=== PATIENT | male | born 1980 | race Hispanic/Latino ===

== ENCOUNTER 2021-04-29 05:22 | Inpatient (IN) | payer SELFPAY ==
--- NOTE | ~2021-04-29 | CT_ITS ---
EXAMINATION: CT abdomen pelvis w con DATE: 04/29/2021 06:57 INDICATION: Left gluteal abscess TECHNIQUE: Computed tomography (CT) of the abdomen and pelvis was performed with 100 mL Omnipaque-350 intravenous contrast. Automated exposure control and iterative reconstruction technique were employe d. The dose-length product was 660.64 mGy-cm. COMPARISON: None FINDINGS: Lung bases are clear. Heart size is normal. No pericardial or pleural effusion. Small sliding-type hi atal hernia. Focal hepatic steatosis at the ligamentum teres. Gallbladder, spleen, pancreas, bilatera l adrenal glands and kidneys are normal. Bowels including the appendix are normal. Bladder is normal. Small fat-containing left inguinal hernia. No free intraperitoneal gas or fluid. No pathologically e nlarged abdominal or pelvic lymphadenopathy. Prominent focal stranding in the subcutaneous fat at the inferomedial aspect of the left buttock consistent with cellulitis without discrete abscess. Mild emeterio mbar dextroscoliosis. IMPRESSION: 1. Prominent focal cellulitis without abscess at the inferomedial aspect of the left buttock. 2. Small sliding-type hiatal hernia. 3. Small fat-containing left inguinal hernia. Reviewed, dictated and finalized at location A.
[2021-04-29 05:28] VITALS: BP 141/93; PULSE 90; RESP 16; TEMP 36.4
--- NOTE | 2021-04-29 06:26 | ED.GENADULT ---
HPI - General Adult General Chief complaint: Skin/Abscess/Foreign Body Stated complaint: boil Time Seen by Provider: 04/29/21 06:09 History of Present Illness HPI narrative: Patient 40-year-old gentleman who presents the emergency department with chief complaint of left gluteal abscess. The patient states that the last several days he had redness and swelling in his left gluteal area. Patient states pain is worse with movement improved with rest. Patient states the area is swollen reports he attempted to pop the area but had no eye drainage. The patient denies fever denies chills patient reports a no prior history of significant abscesses before in the past. Related Data Allergies Allergy/AdvReac Type Severity Reaction Status Date / Time No Known Drug Allergies Allergy Unknown Verified 04/29/21 07:17 Review of Systems Review of Systems: Narrative: A 10 system review of systems was completed on the patient and is negative except for what is stated in the HPI. Nursing and ancillary documentation was reviewed. Exam Narrative: Exam Narrative: GENERAL: Well-appearing, well-nourished, and in no acute distress. HEAD: Normocephalic, atraumatic. EYES: PERRLA and EOMI. ENT: Nares clear, no rhinorrhea or epistaxis. Mucous membranes moist. NECK: Supple. CHEST: Clear to auscultation. No respiratory distress. HEART: Regular rate and rhythm. No murmur heard. Normal peripheral pulses. ABDOMEN: Soft, nontender, nondistended, normal active bowel sounds. EXTREMITIES: Normal range of motion. No edema. SKIN: Warm, dry, no rash. There is redness and swelling in the left gluteal region. Area is extremely firm and tender to touch NEURO: No focal deficits. Alert and oriented x3. PSYCH: Normal mood and affect. Course Course Emergency Course: CT scan showed no evidence of abscess only induration consistent with cellulitis Vital Signs Vital signs: Vital Signs Temperature 36.4 C 04/29/21 05:28 Pulse Rate 90 04/29/21 05:28 Respiratory Rate 16 04/29/21 05:28 Blood Pressure 141/93 H 04/29/21 05:28 Temperature 36.4 C 04/29/21 05:28 Pulse Rate 90 04/29/21 05:28 Respiratory Rate 16 04/29/21 05:28 Blood Pressure 141/93 H 04/29/21 05:28 Medical Decision Making Vital Signs Vital Signs: Vital Signs Temperature 36.4 C 04/29/21 05:28 Pulse Rate 90 04/29/21 05:28 Respiratory Rate 16 04/29/21 05:28 Blood Pressure 141/93 H 04/29/21 05:28 Temperature 36.4 C 04/29/21 05:28 Pulse Rate 90 04/29/21 05:28 Respiratory Rate 16 04/29/21 05:28 Blood Pressure 141/93 H 04/29/21 05:28 Lab Data Result diagrams: 04/29/21 06:24 04/29/21 06:24 Labs: Lab Results 04/29/21 04/29/21 04/29/21 Range/Units 06:24 06:24 06:24 WBC 13.3 H (4.5-10.0) K/mm3 RBC 4.78 (4.6-6.20) M/mm3 Hgb 13.3 L (14.0-18.0) g/dL Hct 40.8 L (42.0-52.0) % MCV 85.4 (80-100) fl MCH 27.8 (26-34) pg MCHC 32.6 (32-36) g/dl RDW 14.4 (11.5-14.5) % Plt Count 282 (150-375) k/mm3 MPV 10.8 H (7.4-10.4) fl Immature Gran % (Auto) 0.4 (0-0.5) % Neut % (Auto) 65.7 (45.5-73.1) % Lymph % (Auto) 19.3 (18.3-44.2) % [place] % (Auto) 11.5 H (2.6-8.5) % Eos % (Auto) 2.8 (0-4.4) % Baso % (Auto) 0.3 (0.2-1.2) % Lymph # (Auto) 2.56 (0.9-3.2) K/mm3 [place] # (Auto) 1.5 H (0.1-0.6) K/mm3 Eos # (Auto) 0.4 H (0-0.3) K/mm3 Baso # (Auto) 0.0 (0.0-0.1) K/mm3 Abs Immat Gran (auto) 0.05 H (0.00-0.031) K/mm3 Absolute Neuts (auto) 8.7 H (1.3-6.7) K/mm3 Absolute Nucleated RBC 0.0 (0.0-0.012) K/mm3 Nucleated RBC % 0.0 (0.0-0.2) % Sodium 140 (137-145) mmol/L Potassium 4.0 (3.4-5.0) mmol/L Chloride 103 (98-107) mmol/L Carbon Dioxide 28 (22-30) mmol/L Anion Gap 9 (8-16) mmol/L BUN 13 (9-20) mg/dL Creatinine 0.80 (0.7-1.3) mg/dL Estim Creat Clear Calc 96 ml/min Estimated GFR >
[2021-04-29 06:33] LABS: Basophils Percent Auto 0.3 % (0.2-1.2); Eosinophils Absolute Auto 0.4 K/mm3 (0-0.3); Eosinophils Percent Auto 2.8 % (0-4.4); Hematocrit 40.8 % (42.0-52.0); Hemoglobin 13.3 g/dL (14.0-18.0); Immature Granulocyte Absolute 0.05 K/mm3 (0.00-0.031); Immature Granulocyte Percent A 0.4 % (0-0.5); Lymphocytes Absolute Auto 2.56 K/mm3 (0.9-3.2); Lymphocytes Percent Auto 19.3 % (18.3-44.2); Mean Corpuscular HGB Conc 32.6 g/dl (32-36); Mean Corpuscular Hemoglobin 27.8 pg (26-34); Mean Corpuscular Volume 85.4 fl (80-100); Mean Platelet Volume 10.8 fl (7.4-10.4); Monocytes Absolute Auto 1.5 K/mm3 (0.1-0.6); Monocytes Percent Auto 11.5 % (2.6-8.5); Neutrophils Absolute Auto 8.7 K/mm3 (1.3-6.7); Neutrophils Percent Auto 65.7 % (45.5-73.1); Platelet Count Result 282 k/mm3 (150-375); Red Blood Count 4.78 M/mm3 (4.6-6.20); Red Cell Distribution Width 14.4 % (11.5-14.5); White Blood Count 13.3 K/mm3 (4.5-10.0)
[2021-04-29 06:42] LABS: Alanine Aminotransferase 81 U/L (4-50); Albumin Level 4.2 g/dL (3.5-5.1); Alkaline Phosphatase 174 U/L (38-126); Anion Gap 9 mmol/L (8-16); Aspartate Amino Transferase 70 U/L (17-59); Bilirubin,Total 0.7 mg/dL (0.2-1.3); Blood Urea Nitrogen 13 mg/dL (9-20); Calcium 9.2 mg/dL (8.4-10.2); Carbon Dioxide 28 mmol/L (22-30); Chloride 103 mmol/L (98-107); Estimated CRCL calculation 96 ml/min; Estimated Glomerular Filt Rate > 60; Glucose 105 mg/dL (75-110); Lactic Acid Reflex 0.6 mmol/L (0.7-2.1); Sodium 140 mmol/L (137-145)
[2021-04-29] MEDS: SODIUM CHLORIDE 0.9% IV 1,000 ML 999 ML IV CONT (07:18)
[2021-04-29] MEDS: ONDANSETRON INJ 4 MG/2 ML VIAL IV PUSH (07:18)
[2021-04-29] MEDS: HYDROmorphone HCL INJ (*CRX) 1 MG/ML SYR IV PUSH (07:19)
[2021-04-29] MEDS: CLINDAMYCIN 600 MG/D5W 50 ML 600 MG/50 ML PIGGYBACK 100 MG IVPB ×3 (07:19→20:45)
--- NOTE | 2021-04-29 08:43 | ADMGEN ---
This patient, Bill Olguin, was admitted to 2 Medical Room 250-01. Patient/family oriented to hospital policies and general routines including ID bracelet, bed and alarms, visiting hours, pain management, procedures, bathroom and other care routines, personal items, smoking policy, room service/diet, and visiting hours. Information on how to activate the Rapid Response Team has been discussed. Patient/Family are encouraged to report perceived risks to care and to ask questions if they do not understand what they are told or what they should do.
[2021-04-29] MEDS: ACETAMINOPHEN 325 MG TABLET 650 MG PO ×2 (09:12→14:23)
--- NOTE | 2021-04-29 13:50 | PM.IMHP ---
H&P: HPI History of Present Illness Date/Time: 04/29/21 13:50 PATIENT IS ADMITTED UNDER OBSERVATION STATUS Chief Complaint: left buttock boil Narrative: 40yo healthy male presents to the ED with complaints of left buttock pain, induration and redness. Patient noted a pimple on his left buttock about 2 weeks ago. He denies that he manipulated the area. He cleaned the area with soap and water. On April 25 patient played soccer. He denies any pain at that time. The following day however he noted increasing pain to the left buttock. The area was hard and indurated. He did try to pop it while in the shower. He continued to use soap and water to the area. He did not use any creams or oral medications. He has not been on antibiotics. He did not contact his doctor. Patient actually does not have a primary care doctor. He denies any fever, chills, nausea, vomiting, abdominal pain, urinary symptoms, chest pain. No history of other skin lesions in the past. No other areas of the skin that are affected at this time. Because of the worsening pain, patient presented to the ED for evaluation. In the ED, patient was hemodynamically stable. He had a CT of the abdomen and pelvis showed prominent focal stranding in the subcutaneous fat at the inferior medial aspect of the left buttock consistent with cellulitis. No discrete abscess noted. Blood cultures [place] [id number]. He was treated clindamycin admitted for further care. Review of Systems Review of Systems: All systems reviewed & are unremarkable except as noted in HPI and below PMFSH Past Medical History Medical History Alcohol abuse Seasonal allergies Tobacco abuse Surgical History Surgical History No pertinent past surgical history Family History Family History Father Diabetes mellitus Mother Heart disease Social History Social History Social History: Patient lives at home with his girlfriend and brother. He has 4 children that live elsewhere. He smoked a pack a week for about 10 years but now only smokes when he drinks alcohol. He denies drug use. He drinks 12-18 beers 1 to 2 times a week. Full code. He nominates his girlfriend to be his surrogate decision maker. Smoking status: Light tobacco smoker Alcohol intake: current Drinks per week: 12 Substance use: never Substance use type: does not use Gender identity (if verbalized by the patient): Male Spiritual care concerns: No Meds Home Medications and Allergies Home Medications Medication Instructions Recorded Confirmed Type pantoprazole [Protonix] 20 mg PO DAILY PRN 04/29/21 04/29/21 History Allergies Allergy/AdvReac Type Severity Reaction Status Date / Time No Known Drug Allergies Allergy Unknown Verified 04/29/21 07:17 Vital Signs Vital Signs - 24 hr 04/29/21 05:28 Temperature 97.6 F Pulse Rate 90 Respiratory Rate 16 Blood Pressure 141/93 H Exam Narrative: Exam Narrative: AF 97.6 141/93 90 16 Gen - well-nourished, well-developed male in no acute respiratory distress who is nontoxic-appearing lying semi recumbent in bed but who appears uncomfortable HEENT - normocephalic. Atraumatic. Pupils equal round and reactive. Extraocular motions intact. Sclera mildly injected and anicteric. Nares patent. Oropharynx was clear. No oral lesions. Moist mucous membranes. Tongue was midline. Palate robles symmetrically. No facial asymmetry. Poor dentition. Neck - neck was supple. No dominant adenopathy, thyromegaly or masses. 2+ carotid upstrokes Chest - lungs are clear to auscultation bilaterally. No wheezes or crackles. CV - heart was regular rate and rhythm. S1-S2. No murmurs gallops or rubs. Abd - abdomen wa
[2021-04-29 14:00] VITALS: BP 107/71; PULSE 77; RESP 18; TEMP 37.4; O2SAT 98
--- NOTE | 2021-04-29 14:59 | PM.CNGS ---
Assessment and Plan Assessment and plan (1) Left buttock abscess: Code(s): L02.31 - Cutaneous abscess of buttock Status: Acute Assessment and Plan: Left buttock abscess with overlying skin necrosis. This appears to be the cause for his leukocytosis. I have discussed the case and plan with Dr. Ayoub. Will plan to make patient NPO aftermidnight and proceed with incision and drainage of the left buttock abscess. Description of the procedure, risks, benefits, expected outcomes, and expected recovery were discussed with the patient in detail. Patient agrees to proceed. Continue IV antibiotics and analgesics as needed for pain. (2) Alcohol abuse: Code(s): F10.10 - Alcohol abuse, uncomplicated Status: Acute Assessment and Plan: Encouraged cessation. (3) Tobacco abuse: Code(s): Z72.0 - Tobacco use Status: Acute Assessment and Plan: Encouraged cessation. Additional Plan Thank you for allowing us to see the patient in consultation and we will continue to follow along with you. History of Present Illness Consult details Consult date: 04/29/21 Reason for consult: other (Left buttock cellulitis and suspected abscess) Requesting physician: Shahzad Vick MD Narrative: This is a 40-year-old male who presented to the ER with complaints of left buttock pain and swelling. He reports noticing a small bump on his left buttock about 2 weeks ago. This area progressively became more swollen. On Monday, he reports that he noticed the left buttock became firm and tender. He has not used any over the counter medications or creams. He has not seen a medical provider prior to his ER visit. Denies fevers or chills. Denies a history of abscesses in the past. No history of MRSA. Due to the worsening pain, he presented to the ER for further evaluation. He had a CT scan of the abdomen and pelvis in the [facility] ER which showed prominent focal stranding in the subcutaneous fat at the inferior medial aspect of the left buttock consistent with cellulitis. Labs revealed mild leukocytosis with a white blood cell count of 13,300. The patient was admitted to the Hospitalist and started on IV Clindamycin. The patient is now seen on the medical floor. He reports significant left buttock pain. No other complaints at this time. Review of Systems Review of Systems: All systems reviewed & are unremarkable except as noted in HPI and below Constitutional: Constitutional: Reports as per HPI, Denies chills and Denies fever(s) Cardiovascular: Cardiovascular: Reports no additional cardiovascular complaints, Denies chest pain and Denies leg edema Respiratory: Respiratory: Reports no additional respiratory complaints, Denies cough and Denies dyspnea Gastrointestinal: Gastrointestinal: Reports no additional gastrointestinal complaints, Denies abdominal pain, Denies bloating, Denies change in bowel habits, Denies change in stool character, Denies constipation, Denies diarrhea, Denies nausea and Denies vomiting Genitourinary: Genitourinary: Denies dysuria Integumentary/Breasts: Skin/Breast: Reports wounds (left buttock) Neurologic: Reports system reviewed and no additional complaints, except as documented, Reports Normal hearing present, Denies abnormal gait, Denies dizziness, Denies focal weakness, Denies numbness and Denies tingling PMFSH Past Medical History Medical History Seasonal allergies Surgical History Surgical History No pertinent past surgical history Family History Family History Father Diabetes mellitus Mother Heart disease Social History Social History Social History: Patient lives at home with his girlfriend and brother. He has 4 children that live elsewhere. He smoked a pack a week for about
[2021-04-29] MEDS: THIAMINE HCL 100 MG TABLET PO (16:58)
[2021-04-29] MEDS: HYDROcodone/acetaminophen (*CRX) 5-325 MG TABLET 1 TAB PO (20:26)
[2021-04-29 21:08] VITALS: BP 141/69; PULSE 80; RESP 16; TEMP 37.4; O2SAT 99
[2021-04-29 22:44] VITALS: O2SAT 99
[2021-04-30] VITALS (10 sets, daily range): BP systolic 105–128; BP diastolic 67–84; PULSE 74–95; RESP 14–18; TEMP 36.9–38; O2SAT 95–100
[2021-04-30] MEDS: HYDROcodone/acetaminophen (*CRX) 5-325 MG TABLET 1 TAB PO ×4 (02:01→23:06)
[2021-04-30 05:36] LABS: Basophils Percent Auto 0.2 % (0.2-1.2); Eosinophils Absolute Auto 0.4 K/mm3 (0-0.3); Hematocrit 38.1 % (42.0-52.0); Hemoglobin 12.4 g/dL (14.0-18.0); Immature Granulocyte Absolute 0.05 K/mm3 (0.00-0.031); Immature Granulocyte Percent A 0.4 % (0-0.5); Lymphocytes Absolute Auto 2.45 K/mm3 (0.9-3.2); Mean Corpuscular HGB Conc 32.5 g/dl (32-36); Monocytes Absolute Auto 1.3 K/mm3 (0.1-0.6); Monocytes Percent Auto 9.6 % (2.6-8.5); Neutrophils Absolute Auto 9.3 K/mm3 (1.3-6.7); Neutrophils Percent Auto 68.8 % (45.5-73.1); Platelet Count Result 276 k/mm3 (150-375); Red Blood Count 4.59 M/mm3 (4.6-6.20); Red Cell Distribution Width 14.1 % (11.5-14.5); White Blood Count 13.6 K/mm3 (4.5-10.0)
[2021-04-30 05:52] LABS: Anion Gap 7 mmol/L (8-16); Blood Urea Nitrogen 11 mg/dL (9-20); Calcium 9.2 mg/dL (8.4-10.2); Carbon Dioxide 29 mmol/L (22-30); Chloride 101 mmol/L (98-107); Estimated CRCL calculation 86 ml/min; Estimated Glomerular Filt Rate > 60; Glucose 102 mg/dL (75-110); Potassium 4.6 mmol/L (3.4-5.0); Sodium 137 mmol/L (137-145)
[2021-04-30] MEDS: CLINDAMYCIN 600 MG/D5W 50 ML 600 MG/50 ML PIGGYBACK 100 MG IVPB ×3 (06:02→21:47)
[2021-04-30 07:12] LABS: Alanine Aminotransferase 65 U/L (4-50); Albumin Level 3.9 g/dL (3.5-5.1); Alkaline Phosphatase 161 U/L (38-126); Aspartate Amino Transferase 52 U/L (17-59); Bilirubin,Total 0.5 mg/dL (0.2-1.3)
[2021-04-30] MEDS: FOLIC ACID 1 MG TABLET PO (08:19)
--- NOTE | 2021-04-30 08:30 | PM.PNGS ---
Progress Note: A&P Assessment and Plan (1) Left buttock abscess: Code(s): L02.31 - Cutaneous abscess of buttock Status: Acute Assessment and Plan: Will proceed with I&D of left buttock abscess today. Patient NPO for sedation. Continue IV antibiotics. Subjective Subjective Date/Time Seen: 04/30/21 08:30 Interval history: Infection no better today. Still having pain, swelling, redness. Exam Skin: Other: 6cm area of erythema and induration on left buttock Objective Data Vital Signs Vital Signs: Vital Signs - 24 hr 04/29/21 14:00 04/29/21 21:08 04/29/21 22:44 Temperature 37.4 C 37.4 C Pulse Rate 77 80 Respiratory Rate 18 16 Blood Pressure 107/71 141/69 H Pulse Oximetry 98 99 99 04/30/21 05:21 Temperature 36.9 C Pulse Rate 80 Respiratory Rate 16 Blood Pressure 115/70 Pulse Oximetry 96 Intake/Output Intake/Output: Intake & Output 04/27/21 04/28/21 04/29/21 04/30/21 23:59 23:59 23:59 23:59 Intake Total 2029 50 Balance 2030 50 Meds/Results Medications: Active Medications Generic Name Dose Route Start Last Admin Trade Name Freq PRN Reason Stop Dose Admin Acetaminophen 650 mg 04/29/21 07:41 04/29/21 14:23 Acetaminophen 325 Mg Tablet PO 650 mg Q4H PRN Administration Mild Pain (1-3) or Fever Hydrocodone Bitart/Acetaminophen 1 tab 04/29/21 14:16 04/30/21 08:19 Hydrocodone/Acetaminophen (*Crx) 5-325 Mg Tablet PO 1 tab Q4H PRN Administration Moderate Pain (4-6) Chlordiazepoxide HCl 25 mg 04/29/21 14:18 Chlordiazepoxide (*Crx) 25 Mg Capsule PO Q6H PRN Withdrawal Enoxaparin Sodium 40 mg 04/30/21 09:00 Enoxaparin 40 Mg/0.4 Ml Syringe SUB-Q DAILY SAULO Folic Acid 1 mg 04/30/21 09:00 04/30/21 08:19 Folic Acid 1 Mg Tablet PO 1 mg DAILY SAULO Administration Clindamycin Phosphate 600 mg in 50 mls @ 100 mls/hr 04/29/21 14:00 04/30/21 06:32 Clindamycin 600 Mg/D5w 50 Ml IVPB Infused Q8H SAULO Infusion Morphine Sulfate 2 mg 04/29/21 14:16 Morphine Sulfate (*Crx) 2 Mg/Ml Inj IV PUSH Q4H PRN Pain Rated 7-10 Ondansetron HCl 4 mg 04/29/21 07:41 Ondansetron Inj 4 Mg/2 Ml Vial IV PUSH Q4H PRN Nausea Pantoprazole Sodium 20 mg 04/29/21 14:05 Pantoprazole Sod Sesquihydrate 20 Mg Tab PO DAILY PRN Indigestion Thiamine HCl 100 mg 04/29/21 14:20 04/29/21 16:58 Thiamine Hcl 100 Mg Tablet PO 100 mg QAM SAULO Administration Radiology Results: ITS Impressions Abdomen/Pelvis CT 04/29/21 07:07 IMPRESSION: 1. Prominent focal cellulitis without abscess at the inferomedial aspect of the left buttock. 2. Small sliding-type hiatal hernia. 3. Small fat-containing left inguinal hernia. Labs Labs: Laboratory Results - last 24 hr 04/30/21 04/30/21 04/30/21 05:18 05:19 05:19 WBC 13.6 H RBC 4.59 L Hgb 12.4 L Hct 38.1 L MCV 83.0 MCH 27.0 MCHC 32.5 RDW 14.1 Plt Count 276 MPV 10.0 Immature Gran % (Auto) 0.4 Neut % (Auto) 68.8 Lymph % (Auto) 18.0 L [place] % (Auto) 9.6 H Eos % (Auto) 3.0 Baso % (Auto) 0.2 Lymph # (Auto) 2.45 [place] # (Auto) 1.3 H Eos # (Auto) 0.4 H Baso # (Auto) 0.0 Abs Immat Gran (auto) 0.05 H Absolute Neuts (auto) 9.3 H Absolute Nucleated RBC 0.0 Nucleated RBC % 0.0 Sodium 137 Potassium 4.6 Chloride 101 Carbon Dioxide 29 Anion Gap 7 L BUN 11 Creatinine 0.90 Estim Creat Clear Calc 86 Estimated GFR > 60 Glucose 102 Calcium 9.2 Total Bilirubin 0.5 Direct Bilirubin 0.0 AST 52 ALT 65 H Alkaline Phosphatase 161 H Total Protein 8.0 Albumin 3.9
--- NOTE | 2021-04-30 10:04 | PM.IMPN ---
Progress Note: A&P Assessment and Plan (1) Cellulitis: Qualifiers: Site of cellulitis: buttock Qualified Code(s): L03.317 - Cellulitis of buttock Code(s): L03.90 - Cellulitis, unspecified Status: Acute Assessment and Plan: Patient with cellulitis and probably abscess to the left buttock that is extremely indurated with concerns for skin necrosis. This area to be opened and drained today. General surgery consulted and appreciate their input. Continue morphine and Doole for pain control. Will continue Clindamycin for now. Blood culture results pending. Wound culture after I&D. (2) Elevated LFTs: Code(s): R79.89 - Other specified abnormal findings of blood chemistry Status: Acute Assessment and Plan: Mildly elevated LFTs with AST 70 and ALT 81. Probably related to his alcohol use. CT does show focal hepatic steatosis. Repeat levels trending down. He was informed and again encouraged to stop his alcohol use. Will follow for now. (3) Alcohol abuse: Code(s): F10.10 - Alcohol abuse, uncomplicated Status: Acute Assessment and Plan: Patient was educated about the benefits of abstaining from excessive alcohol use. No evidence of alcohol withdrawal. Will continue thiamine and folate. Librium will be available as needed for signs of symptoms withdrawal. (4) Tobacco abuse: Code(s): Z72.0 - Tobacco use Status: Acute Assessment and Plan: Patient was educated about the benefits of smoking cessation. (5) DVT prophylaxis: Code(s): Z29.9 - Encounter for prophylactic measures, unspecified Status: Acute Assessment and Plan: Lovenox Subjective Date/time seen: 04/30/21 10:04 Interval history: 40yo healthy male here for left buttock cellulitis/abscess. Pain better controlled with narcotics. Slept okay. No CP or SOB. No n/v. no diarrhea. No abd pain. Exam Narrative: Exam Narrative: AF 98.4 115/70 80 16 96% ra Gen - NARD Chest - CTA bilaterally, nml R CV -RRR. S1-S2. Abd - Soft. Nontender. Nondistended. Positive bowel sounds. Ext - no pedal edema Psych - normal mood and affect. Skin - warm and dry. Mid left buttock with a firm indurated erythematous tender oval mass with central quarter sized dusky center that is peeling and areas of pustules Objective Data Vital Signs Vital Signs: Vital Signs - 24 hr 04/29/21 14:00 04/29/21 21:08 04/29/21 22:44 Temperature 99.4 F 99.3 F Pulse Rate 77 80 Respiratory Rate 18 16 Blood Pressure 107/71 141/69 H Pulse Oximetry 98 99 99 04/30/21 05:21 Temperature 98.4 F Pulse Rate 80 Respiratory Rate 16 Blood Pressure 115/70 Pulse Oximetry 96 Intake/Output Intake/Output: Intake & Output 04/27/21 04/28/21 04/29/21 04/30/21 23:59 23:59 23:59 23:59 Intake Total 2029 50 Balance 2030 50 Meds/Results Medications: Active Medications Generic Name Dose Route Start Last Admin Trade Name Freq PRN Reason Stop Dose Admin Acetaminophen 650 mg 04/29/21 07:41 04/29/21 14:23 Acetaminophen 325 Mg Tablet PO 650 mg Q4H PRN Administration Mild Pain (1-3) or Fever Hydrocodone Bitart/Acetaminophen 1 tab 04/29/21 14:16 04/30/21 08:19 Hydrocodone/Acetaminophen (*Crx) 5-325 Mg Tablet PO 1 tab Q4H PRN Administration Moderate Pain (4-6) Chlordiazepoxide HCl 25 mg 04/29/21 14:18 Chlordiazepoxide (*Crx) 25 Mg Capsule PO Q6H PRN Withdrawal Enoxaparin Sodium 40 mg 04/30/21 09:00 Enoxaparin 40 Mg/0.4 Ml Syringe SUB-Q DAILY SAULO Folic Acid 1 mg 04/30/21 09:00 04/30/21 08:19 Folic Acid 1 Mg Tablet PO 1 mg DAILY SAULO Administration Clindamycin Phosphate 600 mg in 50 mls @ 100 mls/hr 04/29/21 14:00 04/30/21 06:32 Clindamycin 600 Mg/D5w 50 Ml IVPB Infused Q8H SAULO Infusion Lactated Ringer's 1,000 mls @ 30 mls/hr 04/30/21 10:05 Lr - Lactated Ringers Iv IV CO
[2021-04-30] MEDS: ENOXAPARIN 40 MG/0.4 ML SYRINGE SUB-Q (11:43)
--- NOTE | 2021-04-30 13:31 | WPDHPUPDATE1 ---
History and Physical Update Update Date/Time: 04/30/21 13:31 History and Physical has been reviewed, including an updated exam of the patient. There are NO changes in the patient's condition. Risks, benefits, and alternatives have been discussed and questions answered. Patient agrees to proceed with procedure.
--- NOTE | 2021-04-30 14:01 | WPDANESEPPF ---
Anes - Initial Pre Proc Eval Procedure: Operation Date: 04/30/21 15:00 Proposed Procedures p Incision And drainage Left Buttock Abscess - Caesar Ayoub DO Date/Time: 04/30/21 14:01 Surgeon: Mansoor Vick MD Pre Op Diagnosis: left gluteal cellulitis Patient Data Age: 40 Gender: M Height: 5 ft 6 in Weight: 82 kg Last Vital Signs Temp 36.9 C 04/30/21 05:21 Pulse 80 04/30/21 05:21 Resp 16 04/30/21 05:21 BP 115/70 04/30/21 05:21 Pulse Ox 96 04/30/21 05:21 Allergies Allergy/AdvReac Type Severity Reaction Status Date / Time No Known Drug Allergies Allergy Unknown Verified 04/29/21 07:17 Home Medications Medication Instructions Recorded Confirmed Type pantoprazole [Protonix] 20 mg PO DAILY PRN 04/29/21 04/29/21 History Laboratory Tests 04/30/21 04/30/21 04/30/21 05:18 05:19 05:19 WBC 13.6 K/mm3 H K/mm3 (4.5-10.0) RBC 4.59 M/mm3 L M/mm3 (4.6-6.20) Hgb 12.4 g/dL L g/dL (14.0-18.0) Hct 38.1 % L % (42.0-52.0) MCV 83.0 fl fl (80-100) MCH 27.0 pg pg (26-34) MCHC 32.5 g/dl g/dl (32-36) RDW 14.1 % % (11.5-14.5) Plt Count 276 k/mm3 k/mm3 (150-375) MPV 10.0 fl fl (7.4-10.4) Immature Gran % (Auto) 0.4 % % (0-0.5) Neut % (Auto) 68.8 % % (45.5-73.1) Lymph % (Auto) 18.0 % L % (18.3-44.2) [place] % (Auto) 9.6 % H % (2.6-8.5) Eos % (Auto) 3.0 % % (0-4.4) Baso % (Auto) 0.2 % % (0.2-1.2) Lymph # (Auto) 2.45 K/mm3 K/mm3 (0.9-3.2) [place] # (Auto) 1.3 K/mm3 H K/mm3 (0.1-0.6) Eos # (Auto) 0.4 K/mm3 H K/mm3 (0-0.3) Baso # (Auto) 0.0 K/mm3 K/mm3 (0.0-0.1) Abs Immat Gran (auto) 0.05 K/mm3 H K/mm3 (0.00-0.031) Absolute Neuts (auto) 9.3 K/mm3 H K/mm3 (1.3-6.7) Absolute Nucleated RBC 0.0 K/mm3 K/mm3 (0.0-0.012) Nucleated RBC % 0.0 % % (0.0-0.2) Sodium 137 mmol/L mmol/L (137-145) Potassium 4.6 mmol/L mmol/L (3.4-5.0) Chloride 101 mmol/L mmol/L (98-107) Carbon Dioxide 29 mmol/L mmol/L (22-30) Anion Gap 7 mmol/L L mmol/L (8-16) BUN 11 mg/dL mg/dL (9-20) Creatinine 0.90 mg/dL mg/dL (0.7-1.3) Estim Creat Clear Calc 86 ml/min ml/min Estimated GFR > 60 (59 - ) Glucose 102 mg/dL mg/dL (75-110) Calcium 9.2 mg/dL mg/dL (8.4-10.2) Total Bilirubin 0.5 mg/dL mg/dL (0.2-1.3) Direct Bilirubin 0.0 mg/dL mg/dL (0-0.3) AST 52 U/L U/L (17-59) ALT 65 U/L H U/L (4-50) Alkaline Phosphatase 161 U/L H U/L (38-126) Total Protein 8.0 g/dL g/dL (6.3-8.2) Albumin 3.9 g/dL g/dL (3.5-5.1) Patient hx anesthesia problems: none Family hx anesthesia problems: none [facility] Past Medical History Medical History Alcohol abuse Seasonal allergies Tobacco abuse Surgical History Surgical History No pertinent past surgical history Family History Family History Father Diabetes mellitus Mother Heart disease Social History Social History Social History: Patient lives at home with his girlfriend and brother. He has 4 children that live elsewhere. He smoked a pack a week for about 10 years but now only smokes when he drinks alcohol. He denies drug use. He drinks 12-18 beers 1 to 2 times a week. Full code. He nominates his girlfriend to be his surrogate decision maker. Smoking status: Light tobacco smoker Alcohol intake: current Drinks per week: 12 Substance use: never Substance use type: does not
[2021-04-30] MEDS: HYDROmorphone HCL INJ (*CRX) 1 MG/ML SYR IV PUSH (14:07)
[2021-04-30] MEDS: LACTATED RINGERS 1,000 ML 30 ML IV CONT (14:10)
--- NOTE | 2021-04-30 15:35 | P.OP_ITS ---
Procedure Note - Detailed Date of procedure: 04/30/21 Pre-op diagnosis: Left buttock abscess Post-op diagnosis: same Procedure performed: Incision and drainage of complicated left buttock abscess Description of procedure: * Procedure as well as risks benefits and alternatives were discussed with the patient. Written consent was obtained and placed in chart prior to procedure. Patient was brought back to surgical suite. He was placed in right lateral decubitus position. His left buttock area was prepped and draped in sterile fashion. IV sedation was administered by the anesthesia department. Time-out was done to confirm patient and procedure. 1% lidocaine with epinephrine was infiltrated locally around the left buttock abscess. A 3 cm incision was made over the area induration and erythema using a 15 blade scalpel. The abscess cavity was entered and purulence fluid was drained. A culture swab was used for aerobic and anaerobic culture and sensitivities. The abscess cavity was completely opened up and loculations were broken down using a curved hemostat and blunt dissection with finger. Once all the loculations were adequately broken up there did not appear to be very much purulence fluid remaining. The cavity was then irrigated with sterile saline. The abscess cavity was then with half-inch iodoform gauze. Fluff gauze ABD pad mesh underwear was then applied. Patient was then awakened from [facility] transferred to recovery. Anesthesia: MAC and local Surgeon: Caesar Ayoub DO Estimated blood loss (mL): 5 Packing: Yes (1/2 inch iodoform gauze) Complications: No immediate complications Condition: stable Disposition: floor Findings: * Multiloculated subcutaneous left buttock abscess with purulence drainage. Loculations broken up with curved hemostat and finger dissection. Wound cultured for aerobic and anaerobic culture and sensitivity. Wound irrigated with sterile saline and then packed with half-inch iodoform gauze.
--- NOTE | 2021-04-30 16:42 | PC.NURSE ---
Patient returned from surgery. Patient in bed resting comfortably with no complaints of pain at this time. Patients dinner ordered at this time. Will continue to monitor patient.
[2021-04-30] MEDS: THIAMINE HCL 100 MG TABLET PO (16:49)
[2021-04-30] MEDS: MORPHINE SULFATE (*CRX) 2 MG/ML INJ IV PUSH (20:41)
[2021-05-01 00:03] VITALS: BP 116/54; PULSE 74; RESP 20; TEMP 36.7; O2SAT 96
[2021-05-01] MEDS: MORPHINE SULFATE (*CRX) 2 MG/ML INJ IV PUSH ×2 (04:32→12:00)
[2021-05-01 05:24] VITALS: BP 113/57; PULSE 71; RESP 20; TEMP 36.8; O2SAT 95
[2021-05-01 05:28] LABS: Basophils Percent Auto 0.4 % (0.2-1.2); Eosinophils Absolute Auto 0.3 K/mm3 (0-0.3); Eosinophils Percent Auto 3.4 % (0-4.4); Hematocrit 38.1 % (42.0-52.0); Hemoglobin 12.4 g/dL (14.0-18.0); Immature Granulocyte Absolute 0.04 K/mm3 (0.00-0.031); Immature Granulocyte Percent A 0.4 % (0-0.5); Lymphocytes Absolute Auto 2.14 K/mm3 (0.9-3.2); Lymphocytes Percent Auto 21.5 % (18.3-44.2); Mean Corpuscular HGB Conc 32.5 g/dl (32-36); Mean Corpuscular Volume 82.8 fl (80-100); Mean Platelet Volume 10.1 fl (7.4-10.4); Monocytes Absolute Auto 1.1 K/mm3 (0.1-0.6); Monocytes Percent Auto 11.2 % (2.6-8.5); Neutrophils Absolute Auto 6.3 K/mm3 (1.3-6.7); Neutrophils Percent Auto 63.1 % (45.5-73.1); Platelet Count Result 309 k/mm3 (150-375)
[2021-05-01] MEDS: CLINDAMYCIN 600 MG/D5W 50 ML 600 MG/50 ML PIGGYBACK 100 MG IVPB ×3 (05:40→21:50)
[2021-05-01 06:03] LABS: Alanine Aminotransferase 58 U/L (4-50); Albumin Level 3.7 g/dL (3.5-5.1); Alkaline Phosphatase 164 U/L (38-126); Anion Gap 7 mmol/L (8-16); Aspartate Amino Transferase 51 U/L (17-59); Bilirubin,Total 0.7 mg/dL (0.2-1.3); Blood Urea Nitrogen 13 mg/dL (9-20); Calcium 8.9 mg/dL (8.4-10.2); Carbon Dioxide 30 mmol/L (22-30); Chloride 101 mmol/L (98-107); Estimated CRCL calculation 86 ml/min; Estimated Glomerular Filt Rate > 60; Glucose 99 mg/dL (75-110); Potassium 4.4 mmol/L (3.4-5.0); Sodium 138 mmol/L (137-145)
[2021-05-01 06:18] VITALS: BP 113/57; PULSE 71; RESP 20; TEMP 36.8; O2SAT 95
[2021-05-01 06:23] LABS: Hepatitis B Surface Antigen Negative (Negative)
[2021-05-01 06:40] LABS: Hepatitis B Surface Anti Res Negative; Hepatitis C Virus Antibody Negative (Negative)
[2021-05-01] MEDS: FOLIC ACID 1 MG TABLET PO (09:19)
[2021-05-01] MEDS: HYDROcodone/acetaminophen (*CRX) 5-325 MG TABLET 1 TAB PO ×2 (09:20→20:30)
--- NOTE | 2021-05-01 09:58 | PM.PNGS ---
Progress Note: A&P Assessment and Plan (1) Left buttock abscess: Code(s): L02.31 - Cutaneous abscess of buttock Status: Acute Assessment and Plan: Continue daily packing changes. Patient still with significant pain with dressing changes, therefore will likely keep it least 1 more day in the hospital. Cultures are pending. Continue broad-spectrum Subjective Subjective Date/Time Seen: 05/01/21 09:58 Interval history: Patient is still having some pain in the left buttock region. No fevers. Exam Skin: Other: Erythema remains present along left buttock abscess, but induration slightly improved. Packing removed. No significant purulence drainage. Half-inch packing gauze replaced. Objective Data Vital Signs Vital Signs: Vital Signs - 24 hr 04/30/21 13:52 04/30/21 15:40 04/30/21 15:45 Temperature 36.9 C 37.3 C Pulse Rate 83 87 82 Respiratory Rate 16 17 16 Blood Pressure 128/73 105/67 109/69 Pulse Oximetry 100 100 100 04/30/21 15:50 04/30/21 16:00 04/30/21 16:15 Temperature Pulse Rate 79 74 Respiratory Rate 15 14 Blood Pressure 116/74 118/84 Pulse Oximetry 100 97 97 04/30/21 16:20 04/30/21 20:29 04/30/21 22:18 Temperature 38.0 C H 38.0 C H Pulse Rate 77 95 95 Respiratory Rate 18 18 18 Blood Pressure 117/81 112/68 112/68 Pulse Oximetry 98 95 95 05/01/21 00:03 05/01/21 05:24 05/01/21 06:18 Temperature 36.7 C 36.8 C 36.8 C Pulse Rate 74 71 71 Respiratory Rate 20 20 20 Blood Pressure 116/54 L 113/57 L 113/57 L Pulse Oximetry 96 95 95 Intake/Output Intake/Output: Intake & Output 04/28/21 04/29/21 04/30/21 05/01/21 23:59 23:59 23:59 23:59 Intake Total 2029 1090 360 Output Total 600 Balance 2029 490 360 Meds/Results Medications: Active Medications Generic Name Dose Route Start Last Admin Trade Name Freq PRN Reason Stop Dose Admin Acetaminophen 650 mg 04/29/21 07:41 04/29/21 14:23 Acetaminophen 325 Mg Tablet PO 650 mg Q4H PRN Administration Mild Pain (1-3) or Fever Hydrocodone Bitart/Acetaminophen 1 tab 04/29/21 14:16 05/01/21 09:20 Hydrocodone/Acetaminophen (*Crx) 5-325 Mg Tablet PO 1 tab Q4H PRN Administration Moderate Pain (4-6) Chlordiazepoxide HCl 25 mg 04/29/21 14:18 Chlordiazepoxide (*Crx) 25 Mg Capsule PO Q6H PRN Withdrawal Enoxaparin Sodium 40 mg 04/30/21 09:00 05/01/21 09:23 Enoxaparin 40 Mg/0.4 Ml Syringe SUB-Q Not Given DAILY SAULO Folic Acid 1 mg 04/30/21 09:00 05/01/21 09:19 Folic Acid 1 Mg Tablet PO 1 mg DAILY SAULO Administration Clindamycin Phosphate 600 mg in 50 mls @ 100 mls/hr 04/29/21 14:00 05/01/21 06:10 Clindamycin 600 Mg/D5w 50 Ml IVPB Infused Q8H [facility] Infusion Morphine Sulfate 2 mg 04/29/21 14:16 05/01/21 04:32 Morphine Sulfate (*Crx) 2 Mg/Ml Inj IV PUSH 2 mg Q4H PRN Administration Pain Rated 7-10 Ondansetron HCl 4 mg 04/29/21 07:41 Ondansetron Inj 4 Mg/2 Ml Vial IV PUSH Q4H PRN Nausea Pantoprazole Sodium 20 mg 04/29/21 14:05 Pantoprazole Sod Sesquihydrate 20 Mg Tab PO DAILY PRN Indigestion Thiamine HCl 100 mg 04/29/21 14:20 04/30/21 16:49 Thiamine Hcl 100 Mg Tablet PO 100 mg QAM SAULO Administration Radiology Results: ITS Impressions Abdomen/Pelvis CT 04/29/21 07:07 IMPRESSION: 1. Prominent focal cellulitis without abscess at the inferomedial aspect of the left buttock. 2. Small sliding-type hiatal hernia. 3. Small fat-containing left inguinal hernia. Labs Labs: Laboratory Results - last 24 hr 05/01/21 05/01/21 05/01/21 05:14 05:14 05:14 WBC 10.0 RBC 4.60 Hgb 12.4 L Hct 38.1 L MCV 82.8 MCH 27.0 MCHC 32.5 RDW 14.0 Plt Count 309 MPV 10.1 Immature Gran % (Auto) 0.4 Neut % (Auto) 63.1 Lymph % (Auto) 21.5 [place] % (Auto) 11.2 H Eos % (Auto) 3.4 Baso % (Auto) 0.4 Lymph # (Auto) 2.14 [place] # (Auto) 1.1 H Eos
[2021-05-01 10:18] VITALS: BP 112/63; PULSE 65; RESP 18; TEMP 36.7; O2SAT 97
--- NOTE | 2021-05-01 10:25 | WPDANESPN ---
Anes - Prog Note Post-Op Date/Time: 05/01/21 10:25 Cardiovascular status: normal Respiratory status: normal Airway patency: baseline Mental status: baseline Post-Op hydration status: normal Vital Signs: Last Vital Signs Temp 36.8 C 05/01/21 06:18 Pulse 71 05/01/21 06:18 Resp 20 05/01/21 06:18 BP 113/57 L 05/01/21 06:18 Pulse Ox 95 05/01/21 06:18 Pain Score (VAS): 01/06 I/O: Intake & Output 04/30/21 05/01/21 05/01/21 23:59 07:59 15:59 Intake Total 990 240 120 Output Total 600 Balance 390 240 120 Laboratory Tests 05/01/21 05:14 05/01/21 05:14 05/01/21 05/01/21 05/01/21 05:14 05:14 05:14 WBC 10.0 RBC 4.60 Hgb 12.4 L Hct 38.1 L MCV 82.8 MCH 27.0 MCHC 32.5 RDW 14.0 Plt Count 309 MPV 10.1 Immature Gran % (Auto) 0.4 Neut % (Auto) 63.1 Lymph % (Auto) 21.5 [place] % (Auto) 11.2 H Eos % (Auto) 3.4 Baso % (Auto) 0.4 Lymph # (Auto) 2.14 [place] # (Auto) 1.1 H Eos # (Auto) 0.3 Baso # (Auto) 0.0 Abs Immat Gran (auto) 0.04 H Absolute Neuts (auto) 6.3 Absolute Nucleated RBC 0.0 Nucleated RBC % 0.0 Sodium 138 Potassium 4.4 Chloride 101 Carbon Dioxide 30 Anion Gap 7 L BUN 13 Creatinine 0.90 Estim Creat Clear Calc 86 Estimated GFR > 60 Glucose 99 Calcium 8.9 Total Bilirubin 0.7 AST 51 ALT 58 H Alkaline Phosphatase 164 H Total Protein 8.0 Albumin 3.7 Hep Bs Antigen Negative Hep Bs Antibody Negative Hep B Core Total Ab Hepatitis C Ab Screen Negative 05/01/21 05:14 WBC RBC Hgb Hct MCV MCH MCHC RDW Plt Count MPV Immature Gran % (Auto) Neut % (Auto) Lymph % (Auto) [place] % (Auto) Eos % (Auto) Baso % (Auto) Lymph # (Auto) [place] # (Auto) Eos # (Auto) Baso # (Auto) Abs Immat Gran (auto) Absolute Neuts (auto) Absolute Nucleated RBC Nucleated RBC % Sodium Potassium Chloride Carbon Dioxide Anion Gap BUN Creatinine Estim Creat Clear Calc Estimated GFR Glucose Calcium Total Bilirubin AST ALT Alkaline Phosphatase Total Protein Albumin Hep Bs Antigen Hep Bs Antibody Hep B Core Total Ab Pending Hepatitis C Ab Screen Microbiology 04/29/21 07:32 Blood Blood Culture - Preliminary 04/29/21 06:24 Blood Blood Culture - Preliminary Post-procedural complaints: none Patient Feedback: Patient satisfied with anesthetic care.
[2021-05-01] MEDS: THIAMINE HCL 100 MG TABLET PO (12:00)
[2021-05-01 14:00] VITALS: BP 118/77; PULSE 72; RESP 18; TEMP 36.7; O2SAT 98
--- NOTE | 2021-05-01 14:44 | PM.IMPN ---
Progress Note: A&P Assessment and Plan (1) Cellulitis: Qualifiers: Site of cellulitis: buttock Qualified Code(s): L03.317 - Cellulitis of buttock Code(s): L03.90 - Cellulitis, unspecified Status: Acute Assessment and Plan: Patient with cellulitis to the left buttock that is extremely indurated with concerns for pending skin necrosis. General surgery consult. Add morphine and [place] for pain control. Will continue Clindamycin for now. Follow up on blood culture results. Wound culture after I&D. Discussed with General Surgery I&D done yesterday. Dressing applied and packing inserted Gram positive Cocci found in wound culture (2) Elevated LFTs: Code(s): R79.89 - Other specified abnormal findings of blood chemistry Status: Acute Assessment and Plan: Mildly elevated LFTs. Probably related to his alcohol use. CT does show focal hepatic steatosis. Will follow for now. Education about ETOH use provided (3) Alcohol abuse: Code(s): F10.10 - Alcohol abuse, uncomplicated Status: Inactive Assessment and Plan: Patient was educated about the benefits of abstaining from excessive alcohol use. Will start thiamine and folate. Librium will be available as needed for signs of symptoms withdrawal. (4) Tobacco abuse: Code(s): Z72.0 - Tobacco use Status: Inactive Assessment and Plan: Patient was educated about the benefits of smoking cessation. (5) DVT prophylaxis: Code(s): Z29.9 - Encounter for prophylactic measures, unspecified Status: Acute Assessment and Plan: Lovenox Time Spent With Patient Time with patient: 15 - 25 minutes Subjective Date/time seen: 05/01/21 14:00 40yo healthy male presents to the ED with complaints of left buttock pain, induration and redness. Patient noted a pimple on his left buttock about 2 weeks ago. On 04/30/21 patient was taken to OR for I&D. Patient is still complaining of severe pain in that area. He also had concerns earlier about having a bowel movement, however, was successful with having a BM this afternoon. He did say that his pain is on the left side of his buttock. When I went into the room the patient was laying on his side and when turning over looked very uncomfortable. He denies having any chest pain, shortness of breath, abdominal pain, constipation, diarrhea, weakness, fatigue, lightheadedness, falls, syncope, or numbness and tingling. Education was given to him about cessation of ETOH use. He said that he understood. Review of Systems Review of Systems: All systems reviewed & are unremarkable except as noted in HPI and below Exam Const: General: cooperative, healthy appearing, no acute distress, well developed, alert, awake and uncomfortable Nutritional Appearance: average body habitus and well nourished Orientation/consciousness: patient oriented x3 Limitations: no limitations HENMT: Head: normal to inspection Ears: hearing grossly normal bilaterally General nose exam: Normal external nose present Mouth: Yes Normal oral and palatal mucosa present, Yes lip normal and Yes tongue normal Teeth and gingiva: abnormal tooth and associated gingiva and poor dentition Eyes: General: appearance normal, both eyes and all related structures Alignment and Position: alignment normal Eyelids: eyelids normal Conjunctivae: conjunctivae normal Pupils: Equal, round and reactive pupils present EOM: EOMs intact bilaterally Neck: Neck: normal visual inspection, full ROM, trachea midline and supple Thyroid: thyroid normal Chest: Chest palpation & inspection: normal inspection of the chest Resp: Effort & Inspection: normal respiratory effort and able to speak in complete sentences Auscultation: clear to auscultation bilaterally Cardio: Jugular venous distension: no JVD Rate: regular rate Rhythm: regu
[2021-05-01 22:00] VITALS: BP 119/49; PULSE 71; RESP 20; TEMP 36.6; O2SAT 98
[2021-05-02] MEDS: CLINDAMYCIN 600 MG/D5W 50 ML 600 MG/50 ML PIGGYBACK 100 MG IVPB (05:23)
[2021-05-02 05:43] LABS: Hematocrit 38.3 % (42.0-52.0); Hemoglobin 12.6 g/dL (14.0-18.0); Mean Corpuscular HGB Conc 32.9 g/dl (32-36); Mean Corpuscular Hemoglobin 27.2 pg (26-34); Mean Corpuscular Volume 82.7 fl (80-100); Mean Platelet Volume 10.1 fl (7.4-10.4); Platelet Count Result 325 k/mm3 (150-375); Red Blood Count 4.63 M/mm3 (4.6-6.20); Red Cell Distribution Width 13.8 % (11.5-14.5); White Blood Count 6.5 K/mm3 (4.5-10.0)
[2021-05-02 05:57] LABS: Alanine Aminotransferase 74 U/L (4-50); Albumin Level 3.8 g/dL (3.5-5.1); Alkaline Phosphatase 167 U/L (38-126); Anion Gap 9 mmol/L (8-16); Aspartate Amino Transferase 67 U/L (17-59); Bilirubin,Total 0.3 mg/dL (0.2-1.3); Blood Urea Nitrogen 16 mg/dL (9-20); Carbon Dioxide 29 mmol/L (22-30); Chloride 102 mmol/L (98-107); Estimated CRCL calculation 86 ml/min; Estimated Glomerular Filt Rate > 60; Glucose 103 mg/dL (75-110); Potassium 4.3 mmol/L (3.4-5.0); Sodium 140 mmol/L (137-145)
[2021-05-02 06:00] VITALS: BP 117/76; PULSE 65; RESP 20; TEMP 36.3; O2SAT 98
[2021-05-02] MEDS: HYDROcodone/acetaminophen (*CRX) 5-325 MG TABLET 1 TAB PO (06:20)
[2021-05-02] MEDS: FOLIC ACID 1 MG TABLET PO (08:43)
[2021-05-02] MEDS: THIAMINE HCL 100 MG TABLET PO (08:43)
--- NOTE | 2021-05-02 11:50 | PM.PNGS ---
Progress Note: A&P Assessment and Plan (1) Left buttock abscess: Code(s): L02.31 - Cutaneous abscess of buttock Status: Acute Assessment and Plan: Okay to discharge today. Cultures growing Staph aureus, sensitivities pending. Discharge with antibiotics per hospitalist service. Instructed patient local wound care. This may take 3-4 weeks to heal up. He may follow up as needed. Subjective Subjective Date/Time Seen: 05/02/21 11:50 Interval history: Pain and swelling improving. No fevers. Exam Skin: Other: Induration improving around left buttock abscess. No purulence drainage. Objective Data Vital Signs Vital Signs: Vital Signs - 24 hr 05/01/21 14:00 05/01/21 22:00 05/02/21 06:00 Temperature 36.7 C 36.6 C 36.3 C L Pulse Rate 72 71 65 Respiratory Rate 18 20 20 Blood Pressure 118/77 119/49 L 117/76 Pulse Oximetry 98 98 98 Intake/Output Intake/Output: Intake & Output 04/29/21 04/30/21 05/01/21 05/02/21 23:59 23:59 23:59 23:59 Intake Total 2029 1090 1000 690 Output Total 600 Balance 2029 490 1000 690 Meds/Results Medications: Active Medications Generic Name Dose Route Start Last Admin Trade Name Freq PRN Reason Stop Dose Admin Acetaminophen 650 mg 04/29/21 07:41 04/29/21 14:23 Acetaminophen 325 Mg Tablet PO 650 mg Q4H PRN Administration Mild Pain (1-3) or Fever Hydrocodone Bitart/Acetaminophen 1 tab 04/29/21 14:16 05/02/21 06:20 Hydrocodone/Acetaminophen (*Crx) 5-325 Mg Tablet PO 1 tab Q4H PRN Administration Moderate Pain (4-6) Chlordiazepoxide HCl 25 mg 04/29/21 14:18 Chlordiazepoxide (*Crx) 25 Mg Capsule PO Q6H PRN Withdrawal Enoxaparin Sodium 40 mg 04/30/21 09:00 05/02/21 08:44 Enoxaparin 40 Mg/0.4 Ml Syringe SUB-Q Not Given DAILY SAULO Folic Acid 1 mg 04/30/21 09:00 05/02/21 08:43 Folic Acid 1 Mg Tablet PO 1 mg DAILY SAULO Administration Clindamycin Phosphate 600 mg in 50 mls @ 100 mls/hr 04/29/21 14:00 05/02/21 05:53 Clindamycin 600 Mg/D5w 50 Ml IVPB Infused Q8H SAULO Infusion Morphine Sulfate 2 mg 04/29/21 14:16 05/01/21 12:00 Morphine Sulfate (*Crx) 2 Mg/Ml Inj IV PUSH 2 mg Q4H PRN Administration Pain Rated 7-10 Ondansetron HCl 4 mg 04/29/21 07:41 Ondansetron Inj 4 Mg/2 Ml Vial IV PUSH Q4H PRN Nausea Pantoprazole Sodium 20 mg 04/29/21 14:05 Pantoprazole Sod Sesquihydrate 20 Mg Tab PO DAILY PRN Indigestion Thiamine HCl 100 mg 04/29/21 14:20 05/02/21 08:43 Thiamine Hcl 100 Mg Tablet PO 100 mg QAM SAULO Administration Radiology Results: ITS Impressions Abdomen/Pelvis CT 04/29/21 07:07 IMPRESSION: 1. Prominent focal cellulitis without abscess at the inferomedial aspect of the left buttock. 2. Small sliding-type hiatal hernia. 3. Small fat-containing left inguinal hernia. Labs Labs: Laboratory Results - last 24 hr 05/02/21 05/02/21 05:16 05:16 WBC 6.5 RBC 4.63 Hgb 12.6 L Hct 38.3 L MCV 82.7 MCH 27.2 MCHC 32.9 RDW 13.8 Plt Count 325 MPV 10.1 Sodium 140 Potassium 4.3 Chloride 102 Carbon Dioxide 29 Anion Gap 9 BUN 16 Creatinine 0.90 Estim Creat Clear Calc 86 Estimated GFR > 60 Glucose 103 Calcium 9.0 Total Bilirubin 0.3 AST 67 H ALT 74 H Alkaline Phosphatase 167 H Total Protein 8.0 Albumin 3.8 Quality VTE Prophylaxis VTE prophylaxis: pharmacologic ordered (Lovenox)
--- NOTE | 2021-05-02 12:36 | P.DS_ITS ---
DS: Admitting Diagnosis Admitting Diagnosis Admitting Diagnosis: Gluteal Abscess DS: Discharge Diagnosis Discharge Diagnosis (1) Cellulitis: Qualifiers: Site of cellulitis: buttock Qualified Code(s): L03.317 - Cellulitis of buttock Code(s): L03.90 - Cellulitis, unspecified Status: Acute Assessment and Plan: * Patient with cellulitis to the left buttock that is extremely indurated with concerns for pending skin necrosis. * General surgery consult. * Add morphine and [place] for pain control, will send patient with norco for two days * Will continue Clindamycin for now, will continue Clindamycin PO 450mg TID for 7 days * Follow up on blood culture results. * Wound culture after I&D. showed staph aureus * Discussed with General Surgery * I&D done yesterday. * Dressing applied and packing inserted,. wound care at home * Follow up with surgery if needed. * Gram positive Cocci found in wound culture (2) Elevated LFTs: Code(s): R79.89 - Other specified abnormal findings of blood chemistry Status: Acute Assessment and Plan: * Mildly elevated LFTs. * Probably related to his alcohol use. * CT does show focal hepatic steatosis. * Will follow for now. * Education about ETOH use provided * Labs are steady (3) Alcohol abuse: Code(s): F10.10 - Alcohol abuse, uncomplicated Status: Inactive Assessment and Plan: * Patient was educated about the benefits of abstaining from excessive alcohol use. * Will start thiamine and folate. * Librium will be available as needed for signs of symptoms withdrawal. (4) Tobacco abuse: Code(s): Z72.0 - Tobacco use Status: Inactive Assessment and Plan: * Patient was educated about the benefits of smoking cessation. (5) DVT prophylaxis: Code(s): Z29.9 - Encounter for prophylactic measures, unspecified Status: Acute Assessment and Plan: * Lovenox DS: Summary Hospital Course Hospital Course: 40yo healthy male presents to the ED with complaints of left buttock pain, induration and redness. Patient noted a pimple on his left buttock about 2 weeks ago. On 04/30/21 patient was taken to OR for I&D. Since his procedure the patient has had pain however is better today. Patient has had not had any other complaints since admission. It was noted that his LFTs are elevated, which indicated alcohol education which was also provided. Wound care has been discussed and instructions have been provided. Patient was also notified of his need for antibiotics. He denies having any chest pain, shortness of breath, abdominal pain, constipation, diarrhea, weakness, fatigue, lightheadedness, falls, syncope, or numbness and tingling Time spent discussing smoking cessation with patient: 3 to 10 minutes Status at Discharge Functional status at discharge: independent ambulation Overall status at discharge: patient is back to baseline Time Spent with Patient Time attestation: Total time spent providing and/or coordinating discharge services: Time spent: Less than 30 minutes Exam Const: General: cooperative, healthy appearing, no acute distress, well developed, alert, awake and uncomfortable Nutritional Appearance: average body habitus and well nourished Orientation/consciousness: patient oriented x3 Limitations: no limitations HENMT: Head: normal to inspection Ears: hearing grossly normal bilaterall
--- NOTE | 2021-05-02 12:36 | PM.DS ---
DS: Admitting Diagnosis Admitting Diagnosis Admitting Diagnosis: Gluteal Abscess DS: Discharge Diagnosis Discharge Diagnosis (1) Cellulitis: Qualifiers: Site of cellulitis: buttock Qualified Code(s): L03.317 - Cellulitis of buttock Code(s): L03.90 - Cellulitis, unspecified Status: Acute Assessment and Plan: Patient with cellulitis to the left buttock that is extremely indurated with concerns for pending skin necrosis. General surgery consult. Add morphine and [place] for pain control, will send patient with norco for two days Will continue Clindamycin for now, will continue Clindamycin PO 450mg TID for 7 days Follow up on blood culture results. Wound culture after I&D. showed staph aureus Discussed with General Surgery I&D done yesterday. Dressing applied and packing inserted,. wound care at home Follow up with surgery if needed. Gram positive Cocci found in wound culture (2) Elevated LFTs: Code(s): R79.89 - Other specified abnormal findings of blood chemistry Status: Acute Assessment and Plan: Mildly elevated LFTs. Probably related to his alcohol use. CT does show focal hepatic steatosis. Will follow for now. Education about ETOH use provided Labs are steady (3) Alcohol abuse: Code(s): F10.10 - Alcohol abuse, uncomplicated Status: Inactive Assessment and Plan: Patient was educated about the benefits of abstaining from excessive alcohol use. Will start thiamine and folate. Librium will be available as needed for signs of symptoms withdrawal. (4) Tobacco abuse: Code(s): Z72.0 - Tobacco use Status: Inactive Assessment and Plan: Patient was educated about the benefits of smoking cessation. (5) DVT prophylaxis: Code(s): Z29.9 - Encounter for prophylactic measures, unspecified Status: Acute Assessment and Plan: Lovenox DS: Summary Hospital Course Hospital Course: 40yo healthy male presents to the ED with complaints of left buttock pain, induration and redness. Patient noted a pimple on his left buttock about 2 weeks ago. On 04/30/21 patient was taken to OR for I&D. Since his procedure the patient has had pain however is better today. Patient has had not had any other complaints since admission. It was noted that his LFTs are elevated, which indicated alcohol education which was also provided. Wound care has been discussed and instructions have been provided. Patient was also notified of his need for antibiotics. He denies having any chest pain, shortness of breath, abdominal pain, constipation, diarrhea, weakness, fatigue, lightheadedness, falls, syncope, or numbness and tingling Time spent discussing smoking cessation with patient: 3 to 10 minutes Status at Discharge Functional status at discharge: independent ambulation Overall status at discharge: patient is back to baseline Time Spent with Patient Time attestation: Total time spent providing and/or coordinating discharge services: Time spent: Less than 30 minutes Exam Const: General: cooperative, healthy appearing, no acute distress, well developed, alert, awake and uncomfortable Nutritional Appearance: average body habitus and well nourished Orientation/consciousness: patient oriented x3 Limitations: no limitations HENMT: Head: normal to inspection Ears: hearing grossly normal bilaterally General nose exam: Normal external nose present Mouth: Yes Normal oral and palatal mucosa present, Yes lip normal and Yes tongue normal Teeth and gingiva: abnormal tooth and associated gingiva and poor dentition Eyes: General: appearance normal, both eyes and all related structures Alignment and Position: alignment normal Eyelids: eyelids normal Conjunctivae: conjunctivae normal Pupils: Equal, round and reactive pupils present EOM: EOMs intact bilaterally Neck: Neck: normal v
[2021-05-04 02:31] LABS: Hepatitis B Core Ab Total Nonreactive (Nonreactive)
== END 2021-05-02 14:00 | disposition home or self-care (01) | DRG 383 ==
LOC: ANHED 07:40 → ANH2MED 07:59
PROVIDERS: Nurse Practitioner; Surgery; Admitting Provider Internal Medicine; Emergency Provider Emergency Medicine; Visit Provider Internal Medicine
PROC: 0H98XZZ Drainage of Buttock Skin, External Approach (ICD-10-PCS; principal; 2021-04-30 15:00)
DX: L03.317 Cellulitis of buttock (principal); L02.31 Cutaneous abscess of buttock; R79.89 Other specified abnormal findings of blood chemistry; F10.10 Alcohol abuse, uncomplicated; F17.200 Nicotine dependence, unspecified, uncomplicated; Z79.899 Other long term (current) drug therapy
CPT/HCPCS: 36415; 74177; 80048; 80053; 80076; 83605; 85025; 85027; 86704; 86706; 86803; 87040; 87070; 87075; 87147; 87186; 87205; 87340; 96365; 96375; 99285; A9270; J1170; J1650; J2250; J2270; J2405; J2704; J3010; J7030; J7120; Q9967